=== PATIENT | male | born 1955 | race Two or more races ===

== ENCOUNTER 2023-05-28 05:04 | Inpatient (IN) | payer OTHER ==
[~2023-05-28] VITALS: Ht 167.6 cm; Wt 82.1 kg
[2023-05-28] VITALS (10 sets, daily range): BP systolic 100–156; BP diastolic 65–99; TEMP 98.5–98.9; O2SAT 94–100
[2023-05-28] MEDS ORDERED: POLYMYXIN B SULFATE 500,000 UNITS ONE (06:28)
[2023-05-28] MEDS ORDERED: TRANEXAMIC ACID 1,000 MG/10 ML VIAL ONE ×2 (06:29→07:45)
[2023-05-28] MEDS ORDERED: BUPIVACAINE 0.25% 75 MG/30 ML VIAL ONE (06:29)
[2023-05-28] MEDS ORDERED: ANESTHESIA TRAY IN PYXIS 1 EA TRAY MC ONE (06:29)
[2023-05-28] MEDS ORDERED: FENTANYL PF 100MCG/2ML AMPUL ONE ×3 (06:34→09:10)
[2023-05-28] MEDS ORDERED: FAMOTIDINE/PF INJ 20 MG/2 ML VIAL IV ONE (06:34)
[2023-05-28] MEDS ORDERED: SEVOFLURANE 250 ML BOTTLE IH ONE (06:46)
[2023-05-28] MEDS ORDERED: ROPIVACAINE HCL 0.5% 5 MG/ML 30ML VIAL ONE (06:51)
[2023-05-28] MEDS ORDERED: ACET650T10 PO (08:58)
[2023-05-28] MEDS ORDERED: METF-442 PO (08:58)
[2023-05-28] MEDS ORDERED: SULI200T4 PO (08:58)
[2023-05-28] MEDS ORDERED: MELO-107 PO (08:58)
[2023-05-28] MEDS ORDERED: BACL10TA PO (08:58)
[2023-05-28] MEDS ORDERED: FURO-145 PO (08:58)
[2023-05-28] MEDS ORDERED: FERR325T24 PO (08:58)
[2023-05-28] MEDS ORDERED: EMPA25TA PO (08:58)
[2023-05-28] MEDS ORDERED: OMEG1CAP40 PO (08:58)
[2023-05-28] MEDS ORDERED: LISI10TA29 PO (08:58)
[2023-05-28] MEDS ORDERED: ATOR40TA PO (08:58)
[2023-05-28] MEDS ORDERED: GABA-532 PO (08:58)
[2023-05-28] MEDS ORDERED: DOCU100C36 PO (08:58)
[2023-05-28] MEDS ORDERED: ACET-2605 PO (08:58)
[2023-05-28] MEDS ORDERED: SEMA14TA PO (08:58)
[2023-05-28] MEDS ORDERED: DICL100G26 TP (08:58)
[2023-05-28] MEDS ORDERED: OMEP40CA21 PO (08:58)
[2023-05-28] MEDS ORDERED: POTA10CA43 PO (08:58)
[2023-05-28] MEDS ORDERED: ACETAMINOPHEN 325 MG TABLET PO PRN (09:30)
[2023-05-28] MEDS ORDERED: ONDANSETRON HCL/PF 4 MG/2 ML VIAL IV PRN (09:30)
[2023-05-28] MEDS ORDERED: SENNOSIDES 8.6 MG TABLET PO PRN ×2 (09:30)
[2023-05-28] MEDS ORDERED: DOCUSATE SODIUM 250 MG CAPSULE PO PRN (09:30)
[2023-05-28] MEDS ORDERED: HYDROCODONE/APAP 5/325MG TABLET PO PRN (09:30)
[2023-05-28] MEDS ORDERED: DOCUSATE SODIUM 100 MG CAPSULE PO PRN ×2 (09:30→12:30)
[2023-05-28] MEDS ORDERED: BISACODYL SUPP (10 MG) 10 MG/SUPP.RECT SUPP.RECT RC PRN (09:30)
[2023-05-28] MEDS ORDERED: BACLOFEN (10 MG) 10 MG TABLET PO PRN (12:30)
[2023-05-28] MEDS ORDERED: DEXTROSE 50%-WATER 50 ML DISP.SYRIN IV PRN (12:30)
[2023-05-28] MEDS: GABAPENTIN 100 MG CAPSULE PO SCH (13:18)
[2023-05-28] MEDS: ANCEF 1 GM/50 ML D5W IV SCH (14:23)
[2023-05-28] MEDS: HYDROCODONE/APAP 5/325MG TABLET PO PRN (15:14)
[2023-05-28] MEDS: METFORMIN 500 MG TABLET PO SCH (16:20)
[2023-05-28] MEDS: SULINDAC 200 MG TABLET PO SCH (16:20)
[2023-05-28] MEDS: BLOOD SUGAR DIAGNOSTIC 1 EACH STRIP IN SCH (16:40)
[2023-05-28] MEDS: INSULIN REGULAR, HUMAN 100 UNIT/ML 3 ML VIAL SQ PRN (16:40)
[2023-05-28] MEDS: ATORVASTATIN 40 MG TABLET PO SCH (21:39)
[2023-05-29 08:00] VITALS: BP 149/86; TEMP 98.2; O2SAT 96
[2023-05-29] MEDS: FERROUS SULFATE (325 MG) 325 MG/TAB TABLET PO SCH (08:30)
[2023-05-29] MEDS: EMPAGLIFLOZIN 25 MG TABLET PO SCH (08:30)
[2023-05-29] MEDS: ASPIRIN 325 MG TABLET PO SCH (08:30)
[2023-05-29] MEDS: LISINOPRIL (10MG) 10 MG TABLET PO SCH (08:31)
[2023-05-29] MEDS: MORPHINE SULFATE INJ 4 MG/ML DISP.SYRIN IV PRN (08:32)
[2023-05-29 16:00] VITALS: BP 130/74; TEMP 97.7; O2SAT 95
== END 2023-05-29 17:31 | disposition home health service (06) | DRG 470 ==
LOC: DS 05:04 → MED 05:06
PROC: 0SRC0J9 Replacement of Right Knee Joint with Synthetic Substitute, Cemented, Open Approach (ICD-10-PCS; principal; 2023-05-28)
DX: M17.11 Unilateral primary osteoarthritis, right knee (principal); E11.9 Type 2 diabetes mellitus without complications; I11.0 Hypertensive heart disease with heart failure; I25.10 Atherosclerotic heart disease of native coronary artery without angina pectoris; I50.9 Heart failure, unspecified; E66.9 Obesity, unspecified; Z79.84 Long term (current) use of oral hypoglycemic drugs; Z79.899 Other long term (current) drug therapy; Z68.29 Body mass index [BMI] 29.0-29.9, adult; E78.5 Hyperlipidemia, unspecified
CPT/HCPCS: 73564-TC; 82962-TC; 94760-TC; 94799-TC; 97110-TC; 97116-TC; 97530-TC; A4217; A4223; A6209; C1713; C1776; G0378; J0690; J1100; J1815; J2270; J2405; J2704; J2795; J3010; J3490; J7030; J7050; J7060

== ENCOUNTER 2023-09-03 05:34 | Inpatient (IN) | payer OTHER ==
[~2023-09-03] VITALS: Ht 167.6 cm; Wt 83.9 kg
[~2023-09-03 05:34] MED LIST: ACET-2605 PO; ACET650T10 PO; ATOR40TA PO; BACL10TA PO; DICL100G26 TP; DOCU100C36 PO; EMPA25TA PO; FERR325T24 PO; FURO-145 PO; GABA-532 PO; LISI10TA29 PO; MELO-107 PO; METF-442 PO; OMEG1CAP40 PO; OMEP40CA21 PO; POTA10CA43 PO; SEMA14TA PO; SULI200T4 PO
[2023-09-03] MEDS ORDERED: POLYMYXIN B SULFATE 500,000 UNITS ONE (06:19)
[2023-09-03] MEDS ORDERED: TRANEXAMIC ACID 1,000 MG/10 ML VIAL ONE (06:19)
[2023-09-03] MEDS ORDERED: BUPIVACAINE 0.25% 75 MG/30 ML VIAL ONE (06:20)
[2023-09-03] MEDS ORDERED: ROCURONIUM BROMIDE 50 MG/5 ML ONE (06:52)
[2023-09-03] MEDS ORDERED: FENTANYL PF 250MCG/5ML AMPUL ONE (06:52)
[2023-09-03 07:40] VITALS: BP 113/72; TEMP 97.7; O2SAT 96
[2023-09-03] MEDS ORDERED: ROPIVACAINE HCL 0.5% 5 MG/ML 30ML VIAL ONE (08:21)
[2023-09-03] MEDS ORDERED: FENTANYL PF 100MCG/2ML AMPUL ONE (08:50)
[2023-09-03] MEDS ORDERED: MEPERIDINE25 MG SYR 25 MG/ML VIAL ONE (09:21)
[2023-09-03 09:49] LABS: HEMOGLOBIN 13.2 g/dL (13.5-17.5)
[2023-09-03] MEDS ORDERED: DOCUSATE SODIUM 250 MG CAPSULE PO PRN (11:00)
[2023-09-03] MEDS ORDERED: SENNOSIDES 8.6 MG TABLET PO PRN (11:00)
[2023-09-03] MEDS ORDERED: DOCUSATE SODIUM 100 MG CAPSULE PO PRN (11:00)
[2023-09-03] MEDS ORDERED: BISACODYL SUPP (10 MG) 10 MG/SUPP.RECT SUPP.RECT RC PRN (11:00)
[2023-09-03] MEDS: ANCEF 1 GM/50 ML D5W IV SCH (14:06)
[2023-09-03 14:50] LABS: CALCIUM, SERUM 8.5 mg/dL (8.5-10.1); CREATININE 0.8 mg/dL (0.6-1.3); POTASSIUM 4.2 mmol/L (3.5-5.1)
[2023-09-03 15:54] VITALS: BP 104/71; TEMP 97.5; O2SAT 98
[2023-09-04] MEDS: HYDROCODONE/APAP 5/325MG TABLET PO PRN ×2 (02:16→06:24)
[2023-09-04 08:00] VITALS: BP 152/81; TEMP 99.7; O2SAT 97
[2023-09-04] MEDS: ENOXAPARIN SODIUM 40 MG/0.4 ML DISP.SYRIN SQ SCH (08:49)
[2023-09-04] MEDS: MORPHINE SULFATE INJ 4 MG/ML DISP.SYRIN IV PRN (08:56)
[2023-09-04] MEDS ORDERED: ONDANSETRON HCL/PF 4 MG/2 ML VIAL IVP PRN (09:00)
[2023-09-04] MEDS ORDERED: Z GUARD REMEDY 4 OZ OINT TP PRN (09:00)
[2023-09-04] MEDS: METFORMIN 500 MG TABLET PO SCH (09:20)
[2023-09-04 11:37] LABS: BASOPHILS % (AUTO) 0.6 % (0.0-2.0); EOSINOPHILS % (AUTO) 0.4 % (0.0-6.0); HEMATOCRIT 35 % (39-51); HEMOGLOBIN 12.1 g/dL (13.5-17.5); LYMPHOCYTES # (AUTO) 0.5 K/uL (0.8-4.8); LYMPHOCYTES % (AUTO) 7.6 % (20.0-44.0); MEAN CORPUSCULAR HEMOGLOBIN 29 PG (26.0-33.0); MEAN CORPUSCULAR HGB CONC 34 g/dl (31.0-36.0); MEAN CORPUSCULAR VOLUME 86 fL (80-96); MONOCYTES # (AUTO) 0.6 K/uL (0.1-1.30); MONOCYTES % (AUTO) 8.3 % (2.0-12.0); NEUTROPHILS # (AUTO) 5.6 K/uL (1.8-8.9); NEUTROPHILS % (AUTO) 83.1 % (43.0-81.0); PLATELET COUNT (AUTO) 224 K/uL (150-450); RED BLOOD CELL COUNT(AUTO) 4.13 MIL/uL (4.5-6.0); RED CELL DISTRIBUTION WIDTH 13.4 % (11.5-15.0); WHITE BLOOD COUNT (AUTO) 6.7 K/uL (4.3-11.0)
[2023-09-04 11:43] LABS: CALCIUM, SERUM 8.7 mg/dL (8.5-10.1); CREATININE 0.8 mg/dL (0.6-1.3); MAGNESIUM 2.2 mg/dL (1.8-2.4); POTASSIUM 4.5 mmol/L (3.5-5.1)
[2023-09-04 20:00] VITALS: BP 145/76; TEMP 99.4; O2SAT 100
[2023-09-04] MEDS: ATORVASTATIN 40 MG TABLET PO SCH (22:10)
[2023-09-05 07:15] LABS: CALCIUM, SERUM 8.1 mg/dL (8.5-10.1); CREATININE 0.6 mg/dL (0.6-1.3); MAGNESIUM 2.1 mg/dL (1.8-2.4); PHOSPHORUS 2.8 mg/dL (2.5-4.9); POTASSIUM 4.1 mmol/L (3.5-5.1)
[2023-09-05] MEDS: PANTOPRAZOLE 40 MG TABLET.DR PO SCH (07:59)
[2023-09-05 08:55] VITALS: BP 156/80; TEMP 99.6; O2SAT 96
[2023-09-05 10:35] LABS: BASOPHILS # (AUTO) 0.1 K/uL (0.0-0.2); BASOPHILS % (AUTO) 1.1 % (0.0-2.0); EOSINOPHILS % (AUTO) 0.6 % (0.0-6.0); HEMATOCRIT 30 % (39-51); HEMOGLOBIN 10.6 g/dL (13.5-17.5); LYMPHOCYTES # (AUTO) 0.8 K/uL (0.8-4.8); LYMPHOCYTES % (AUTO) 10.1 % (20.0-44.0); MEAN CORPUSCULAR HEMOGLOBIN 30 PG (26.0-33.0); MEAN CORPUSCULAR HGB CONC 36 g/dl (31.0-36.0); MEAN CORPUSCULAR VOLUME 83 fL (80-96); MONOCYTES # (AUTO) 0.9 K/uL (0.1-1.30); MONOCYTES % (AUTO) 11.8 % (2.0-12.0); NEUTROPHILS # (AUTO) 6.2 K/uL (1.8-8.9); NEUTROPHILS % (AUTO) 76.4 % (43.0-81.0); PLATELET COUNT (AUTO) 221 K/uL (150-450); RED BLOOD CELL COUNT(AUTO) 3.56 MIL/uL (4.5-6.0); RED CELL DISTRIBUTION WIDTH 12.9 % (11.5-15.0); WHITE BLOOD COUNT (AUTO) 8.1 K/uL (4.3-11.0)
[2023-09-05 12:32] VITALS: BP 141/76; TEMP 97.6; O2SAT 98
[2023-09-05 12:51] LABS: APPEARANCE,URINE CLEAR (CLEAR); BILIRUBIN,URINE NEGATIVE (NEGATIVE); BLOOD, URINE NEGATIVE Ery/uL (NEGATIVE); COLOR,URINE YELLOW (YELLOW); KETONES,URINE NEGATIVE (NEGATIVE); LEUKOCYTE ESTERASE ,URINE NEGATIVE (NEGATIVE); NITRITE, URINE NEGATIVE (NEGATIVE); PH,URINE 6.5 (5.0-8.0); PROTEIN,URINE NEGATIVE (NEGATIVE); UGLUCOSE NEGATIVE (NEGATIVE)
[2023-09-05 13:23] LABS: ADD URINE CULTURE NO; BACTERIA,URINE Rare /HPF (None Seen); RBC,URINE 0-2 /HPF (0-2); SQUAMOUS EPITHELIAL CELL,UR Few /HPF (None Seen); WBC,URINE 0-2 /HPF (0-3)
[2023-09-05 13:35] LABS: THYROID STIMULATING HORMONE 2.47 uIU/mL (0.358-3.74); URIC ACID 4.3 mg/dL (2.6-7.2)
[2023-09-05 16:08] VITALS: BP 141/76; TEMP 97.6; O2SAT 98
[2023-09-05 20:00] VITALS: BP 134/77; TEMP 98.8; O2SAT 99
[2023-09-06 07:30] VITALS: BP 136/76; TEMP 98.4; O2SAT 98
[2023-09-06 07:41] LABS: BASOPHILS # (AUTO) 0.1 K/uL (0.0-0.2); BASOPHILS % (AUTO) 1.1 % (0.0-2.0); EOSINOPHILS # (AUTO) 0.1 K/uL (0.0-0.7); EOSINOPHILS % (AUTO) 1.3 % (0.0-6.0); HEMATOCRIT 28 % (39-51); HEMOGLOBIN 9.8 g/dL (13.5-17.5); LYMPHOCYTES % (AUTO) 13.3 % (20.0-44.0); MEAN CORPUSCULAR HEMOGLOBIN 30 PG (26.0-33.0); MEAN CORPUSCULAR HGB CONC 35 g/dl (31.0-36.0); MEAN CORPUSCULAR VOLUME 83 fL (80-96); MONOCYTES # (AUTO) 0.9 K/uL (0.1-1.30); MONOCYTES % (AUTO) 12.1 % (2.0-12.0); NEUTROPHILS # (AUTO) 5.3 K/uL (1.8-8.9); NEUTROPHILS % (AUTO) 72.2 % (43.0-81.0); PLATELET COUNT (AUTO) 222 K/uL (150-450); RED BLOOD CELL COUNT(AUTO) 3.34 MIL/uL (4.5-6.0); RED CELL DISTRIBUTION WIDTH 12.9 % (11.5-15.0); WHITE BLOOD COUNT (AUTO) 7.3 K/uL (4.3-11.0)
[2023-09-06 08:28] LABS: ALBUMIN 2.7 g/dL (3.4-5.0); CALCIUM, SERUM 8.3 mg/dL (8.5-10.1); CREATININE 0.7 mg/dL (0.6-1.3); PHOSPHORUS 2.7 mg/dL (2.5-4.9); POTASSIUM 3.7 mmol/L (3.5-5.1); TOTAL PROTEIN, SERUM 6.4 g/dL (6.4-8.2)
[2023-09-06] MEDS: SODIUM CHLORIDE 1000 MG TABLET PO SCH (10:47)
[2023-09-06 16:00] VITALS: BP 124/74; TEMP 98.4; O2SAT 95
[2023-09-06 20:00] VITALS: BP 128/64; TEMP 99.5; O2SAT 98
[2023-09-07 07:30] VITALS: BP 146/78; TEMP 98.6; O2SAT 100
[2023-09-07 07:39] LABS: BASOPHILS # (AUTO) 0.1 K/uL (0.0-0.2); BASOPHILS % (AUTO) 1.3 % (0.0-2.0); EOSINOPHILS # (AUTO) 0.1 K/uL (0.0-0.7); EOSINOPHILS % (AUTO) 1.4 % (0.0-6.0); HEMATOCRIT 27 % (39-51); HEMOGLOBIN 9.6 g/dL (13.5-17.5); LYMPHOCYTES % (AUTO) 14.3 % (20.0-44.0); MEAN CORPUSCULAR HEMOGLOBIN 29 PG (26.0-33.0); MEAN CORPUSCULAR HGB CONC 35 g/dl (31.0-36.0); MEAN CORPUSCULAR VOLUME 83 fL (80-96); MONOCYTES # (AUTO) 0.9 K/uL (0.1-1.30); PLATELET COUNT (AUTO) 250 K/uL (150-450); RED BLOOD CELL COUNT(AUTO) 3.29 MIL/uL (4.5-6.0); RED CELL DISTRIBUTION WIDTH 13.3 % (11.5-15.0); WHITE BLOOD COUNT (AUTO) 7.1 K/uL (4.3-11.0)
[2023-09-07 08:08] LABS: CALCIUM, SERUM 8.3 mg/dL (8.5-10.1); CREATININE 0.7 mg/dL (0.6-1.3); PHOSPHORUS 2.6 mg/dL (2.5-4.9); POTASSIUM 3.7 mmol/L (3.5-5.1)
[2023-09-07] MEDS ORDERED: SODI100037 PO (12:01)
[2023-09-07] MEDS: ACETAMINOPHEN 325 MG TABLET PO PRN (13:11)
== END 2023-09-07 14:15 | disposition home or self-care (01) | DRG 470 ==
LOC: DS 05:34 → MED 08:29
PROVIDERS: ADMIT Nurse Practitioner Family; ATTEND Nurse Practitioner Family
PROC: 0SRD0J9 Replacement of Left Knee Joint with Synthetic Substitute, Cemented, Open Approach (ICD-10-PCS; principal; 2023-09-03)
DX: M17.12 Unilateral primary osteoarthritis, left knee (principal); E22.2 Syndrome of inappropriate secretion of antidiuretic hormone; E11.9 Type 2 diabetes mellitus without complications; D64.9 Anemia, unspecified; I50.9 Heart failure, unspecified; I25.10 Atherosclerotic heart disease of native coronary artery without angina pectoris; I11.0 Hypertensive heart disease with heart failure; E78.5 Hyperlipidemia, unspecified; E86.9 Volume depletion, unspecified; Z79.84 Long term (current) use of oral hypoglycemic drugs; Z79.899 Other long term (current) drug therapy; Z96.651 Presence of right artificial knee joint
CPT/HCPCS: 36415; 73564-TC; 80048-TC; 80053-TC; 81001; 82533; 82962-TC; 83735-TC; 83935-TC; 84100-TC; 84443-TC; 84550-TC; 85025-TC; 85027-TC; 86850-TC; 97110-TC; 97112-TC; 97116-TC; 97530-TC; 97760-TC; A4217; A4223; A6209; C1713; C1776; G0378; J0690; J1650; J1885; J2175; J2270; J2704; J2795; J3010; J3490; J7040; J7060